=== PATIENT | female | born 1995 | race Two or more races ===

== ENCOUNTER 2020-12-20 19:52 | Emergency (ER) | payer SELFPAY ==
--- NOTE | 2020-12-20 20:43 | EDM.PDOC ---
<Alessia Joe - Last Filed: 12/20/20 23:21> ED HPI GENERAL MEDICAL PROBLEM - General Chief Complaint: Abdominal Pain Stated Complaint: SEVER HEARTBURN Time Seen by Provider: 12/20/20 20:43 Source of Information: Reports: Patient, RN Notes Reviewed History Limitations: Reports: No Limitations - History of Present Illness INITIAL COMMENTS - FREE TEXT/NARRATIVE: Elif presents today with complaints of epigastric and upper abdominal pain for the past several weeks. She states she has been taking ibuprofen 600mg by mouth several times a day for the pain usually starting when she gets up at 0630. She states she tried a friends prescription stomach medication today x 2 doses without any improvement. Elif reports nausea off and on, emesis x 3 at 1300 today, no donovan blood no coffee ground. She has not tried any other OTC, tums, rolaids or interventions. Her priamry is in [facility]. She denies fever, chills, diarrhea, constipation, injury, trauma or other concerns. She reports last alcohol use 6 months ago or longer. She denies use of tobacco, chewing tobacco, or illicit drugs. She states she has been cutting down on spicy or acidic foods for many weeks due to indigestion. Epigastric Pain Score (Numeric/FACES): 6 - Related Data Allergies Allergy/AdvReac Type Severity Reaction Status Date / Time No Known Allergies Allergy Verified 12/20/20 20:27 Home Meds: Home Meds NK [No Known Home Meds] 12/20/20 [History] Past Medical History Cardiovascular History: Reports: None Respiratory History: Reports: None Gastrointestinal History: Reports: GERD Genitourinary History: Reports: None SAND CUTTER History: Reports: None Musculoskeletal History: Reports: None Neurological History: Reports: Seizure Endocrine/Metabolic History: Reports: Obesity/BMI 30+ Hematologic History: Reports: None Immunologic History: Reports: None Oncologic (Cancer) History: Reports: None Dermatologic History: Reports: None - Infectious Disease History Infectious Disease History: Reports: None - Past Surgical History HEENT Surgical History: Reports: Tonsillectomy Female Surgical History: Reports: None Musculoskeletal Surgical History: Reports: None Social & Family History - Tobacco Use Tobacco Use Status *Q: Never Tobacco User - Caffeine Use Caffeine Use: Reports: Soda - Recreational Drug Use Recreational Drug Use: No ED ROS GENERAL - Review of Systems Review Of Systems: See Below Constitutional: Reports: No Symptoms HEENT: Reports: No Symptoms Respiratory: Reports: No Symptoms Cardiovascular: Reports: No Symptoms Endocrine: Reports: No Symptoms GI/Abdominal: Reports: Abdominal Pain (off and on for several weeks. ), Nausea, Vomiting. Denies: Anorexia, Black Stool, Bloody Stool, Constipation, Diarrhea, Decreased Appetite, Difficulty Swallowing, Distension, Hematemesis, Hematochezia, Melena, Mucous in Stool, Stool Incontinence : Reports: No Symptoms Musculoskeletal: Reports: No Symptoms Skin: Reports: No Symptoms Neurological: Reports: No Symptoms Psychiatric: Reports: No Symptoms Hematologic/Lymphatic: Reports: No Symptoms Immunologic: Reports: No Symptoms ED EXAM, GI/ABD - Physical Exam Exam: See Below Exam Limited By: No Limitations General Appearance: Alert, WD/WN, No Apparent Distress Eyes: Bilateral: Normal Appearance Ears: Normal External Exam, Normal Canal, Hearing Grossly Normal, Normal TMs Nose: Normal Inspection, Normal Mucosa, No Blood Throat/Mouth: Normal Inspection, Normal Lips, Normal Teeth, Normal Gums, Normal Oropharynx, Normal Voice, No Airway Compromise Head: Atraumatic, Normocephalic Neck: Normal Inspection, Supple, Non-Tender, Full Range of Motion. No: Lymphadenopathy (R), Lymphadenopathy (L) Respiratory/Chest: No Respiratory Distress, Lungs Clear, Normal Breath Sounds, No Accessory Muscle Use, Chest Non-Tender. No: Decreased Breath Sounds, Crackles, Rales, Rhonchi, Wheezing, Stridor, Accessory Muscle Use, Retractions, Splinting Cardiovascular: Normal Peripheral Pulses, Regular Rate, Rhythm, No Edema, No Gallop, No Murmur, No Rub GI/Abdominal Exam: Normal Bowel Sounds, Soft, No Organomegaly, No Distention, No Abnormal Bruit, No Mass, Tender (to epigastric and RUQ with palpation with pain radiating to LUQ. ). No: Guarding, Rigid, Rebound, Hernia Back Exam: Normal Inspection, Full Range of Motion. No: CVA Tenderness (R), CVA Tenderness (L) Extremities: Normal Inspection, Normal Range of Motion, Non-Tender, No Pedal Edema, Normal Capillary Refill Neurological: Alert, Oriented, CN II-XII Intact, Normal Cognition, Normal Gait, Normal Reflexes, No Motor/Sensory Deficits Psychiatric: Normal Affect, Normal Mood Skin Exam: Warm, Dry, Intact, Normal Color, No Rash Lymphatic: No Adenopathy Course - Orders/Labs/Meds Labs: Patient lab work reviewed, noted hyperbilirubinemia, hyperlipasemia, hyperamylasemia, with elevated LFTs in setting of nausea, vomiting and abdominal pain. Elif notified of abnormal lab work and advised of best plan of care. She is in agreement with plan. We will obtain a CT scan of abdomen and pelvis with IV contrast, administer pain medication and antiemetic. Discussion on potential need for transfer in case she needs procedure not available here - ERCP, she states transfer to [place] or [facility] is appropriate to her. - Re-Assessments/Exams Free Text/Narrative Re-Assessment/Exam: 12/20/20 23:21 Significant abdominal pain with transfer to wheelchair for CT scan, additional dilaudid ordered. Departure - Departure Disposition: DC/Tfer to [facility] Clinical Impression: Acute pancreatitis due to calculus of common bile duct - Discharge Information Referrals: PCP,None [Primary Care Provider] - Forms: ED Department Discharge <Frantz Moe - Last Filed: 12/21/20 01:02> Course - Vital Signs Last Recorded V/S: Last Vital Signs Temp 36.2 C 12/20/20 20:25 Pulse 90 12/20/20 23:30 Resp 17 12/20/20 23:30 BP 113/67 12/20/20 23:30 Pulse Ox 95 12/20/20 23:30 - Orders/Labs/Meds Orders: Active Orders 24 hr Category Date Time Status Sodium Chloride 0.9% [Normal Saline] 1,000 ml Med 12/20/20 22:30 Active IV ASDIRECTED Sodium Chloride 0.9% [Normal Saline] 85 ml Med 12/20/20 23:00 Active IV ASDIRECTED Sodium Chloride 0.9% [Saline Flush] Med 12/20/20 22:21 Active 10 ml FLUSH ASDIRECTED PRN Saline Lock Insert [OM.PC] Routine Oth 12/20/20 22:21 Ordered Medication Orders Sodium Chloride (Normal Saline) 1,000 mls @ 500 mls/hr IV ASDIRECTED NIK Last Admin: 12/20/20 22:53 Dose: 500 mls/hr Documented by: PREILOR Sodium Chloride (Normal Saline) 85 mls @ 3 mls/sec IV ASDIRECTED NIK Last Admin: 12/20/20 23:15 Dose: 3 mls/sec Documented by: ALE Sodium Chloride (Sodium Chloride 0.9% 10 Ml Syringe) 10 ml FLUSH ASDIRECTED PRN PRN Reason: Keep Vein Open Last Admin: 12/20/20 22:57 Dose: 10 ml Documented by: PREILOR Labs: Laboratory Tests 12/20/20 12/20/20 12/20/20 Range/Units 21:13 21:13 23:43 WBC 7.8 (4.5-11.0) K/uL RBC 4.71 (3.30-5.50) M/uL Hgb 13.1 (12.0-15.0) g/dL Hct 39.0 (36.0-48.0) % MCV 83 (80-98) fL MCH 28 (27-31) pg MCHC 34 (32-36) % Plt Count 265 (150-400) K/uL Neut % (Auto) 60.7 (36-66) % Lymph % (Auto) 30.0 (24-44) % [place] % (Auto) 6.9 H (2-6) % Eos % (Auto) 1.8 L (2-4) % Baso % (Auto) 0.6 (0-1) % Sodium 137 L (140-148) mmol/L Potassium 3.6 (3.6-5.2) mmol/L Chloride 102 (100-108) mmol/L Carbon Dioxide 26 (21-32) mmol/L Anion Gap 12.6 (5.0-14.0) mmol/L BUN 6 L (7-18) mg/dL Creatinine 0.6 (0.6-1.0) mg/dL Est Cr Clr Drug Dosing 122.69 mL/min Estimated GFR (MDRD) > 60 (>60) Glucose 99 (74-106) mg/dL Calcium 8.9 (8.5-10.1) mg/dL Total Bilirubin 3.7 H (0.2-1.0) mg/dL AST 535 H (15-37) U/L ALT 894 H (12-78) U/L Alkaline Phosphatase 132 H (46-116) U/L Total Protein 6.9 (6.4-8.2) g/dL Albumin 3.6 (3.4-5.0) g/dL Globulin 3.3 (2.3-3.5) g/dL Albumin/Globulin Ratio 1.1 L (1.2-2.2) Amylase 852 H (25-115) U/L Lipase 47298 H (73-393) U/L Urine Color Yellow (YELLOW) Urine Appearance Clear (CLEAR) Urine pH 6.0 (5.0-8.0) Ur Specific Martha 1.015 (1.008-1.030) Urine Protein Negative (NEGATIVE) mg/dL Urine Glucose (UA) Negative (NEGATIVE) mg/dL Urine Ketones Negative (NEGATIVE) mg/dL Urine Occult Blood Negative (NEGATIVE) Urine Nitrite Negative (NEGATIVE) Urine Bilirubin Small H (NEGATIVE) Urine Urobilinogen 0.2 (0.2-1.0) EU/dL Ur Leukocyte Esterase Negative (NEGATIVE) Urine RBC 0-5 (0-5) Urine WBC 0-5 (0-5) Ur Epithelial Cells Few Amorphous Sediment Few Urine Bacteria Few Urine Mucus Not seen Urine HCG, Qual SARS CoV-2 RNA Rapid ANTHONY 12/20/20 12/20/20 Range/Units 23:43 23:43 WBC (4.5-11.0) K/uL RBC (3.30-5.50) M/uL Hgb (12.0-15.0) g/dL Hct (36.0-48.0) % MCV (80-98) fL MCH (27-31) pg MCHC (32-36) % Plt Count (150-400) K/uL Neut % (Auto) (36-66) % Lymph % (Auto) (24-44) % [place] % (Auto) (2-6) % Eos % (Auto) (2-4) % Baso % (Auto) (0-1) % Sodium (140-148) mmol/L Potassium (3.6-5.2) mmol/L Chloride (100-108) mmol/L Carbon Dioxide (21-32) mmol/L Anion Gap (5.0-14.0) mmol/L BUN (7-18) mg/dL Creatinine (0.6-1.0) mg/dL Est Cr Clr Drug Dosing mL/min Estimated GFR (MDRD) (>60) Glucose (74-106) mg/dL Calcium (8.5-10.1) mg/dL Total Bilirubin (0.2-1.0) mg/dL AST (15-37) U/L ALT (12-78) U/L Alkaline Phosphatase (46-116) U/L Total Protein (6.4-8.2) g/dL Albumin (3.4-5.0) g/dL Globulin (2.3-3.5) g/dL Albumin/Globulin Ratio (1.2-2.2) Amylase (25-115) U/L Lipase (73-393) U/L Urine Color (YELLOW) Urine Appearance (CLEAR) Urine pH (5.0-8.0) Ur Specific Martha (1.008-1.030) Urine Protein (NEGATIVE) mg/dL Urine Glucose (UA) (NEGATIVE) mg/dL Urine Ketones (NEGATIVE) mg/dL Urine Occult Blood (NEGATIVE) Urine Nitrite (NEGATIVE) Urine Bilirubin (NEGATIVE) Urine Urobilinogen (0.2-1.0) EU/dL Ur Leukocyte Esterase (NEGATIVE) Urine RBC (0-5) Urine WBC (0-5) Ur Epithelial Cells Amorphous Sediment Urine Bacteria Urine Mucus Urine HCG, Qual Negative SARS CoV-2 RNA Rapid ANTHONY Negative Meds: Medications Generic Name Dose Route Start Last Admin Trade Name Freq PRN Reason Stop Dose Admin Sodium Chloride 1,000 mls @ 500 mls/hr 12/20/20 22:30 12/20/20 22:53 Normal Saline IV 500 mls/hr ASDIRECTED NIK Administration Sodium Chloride 85 mls @ 3 mls/sec 12/20/20 23:00 12/20/20 23:15 Normal Saline IV 3 mls/sec ASDIRECTED NIK Administration Sodium Chloride 10 ml 12/20/20 22:21 12/20/20 22:57 Sodium Chloride 0.9% 10 Ml Syringe FLUSH 10 ml ASDIRECTED PRN Administration Keep Vein Open Discontinued Medications Generic Name Dose Route Start Last Admin Trade Name Freq PRN Reason Stop Dose Admin Al Hydroxide/Mg Hydroxide 15 0 ml 12/20/20 21:02 12/20/20 21:31 ml/ Lidocaine HCl 15 ml PO 12/20/20 21:03 30 ml ONETIME ONE Administration Famotidine 20 mg 12/20/20 21:02 12/20/20 21:30 Famotidine 20 Mg Tab PO 12/20/20 21:03 20 mg ONETIME ONE Administration Hydromorphone HCl 0.5 mg 12/20/20 22:21 12/20/20 22:55 Hydromorphone 0.5 Mg/0.5 Ml Syringe IVPUSH 12/20/20 22:22 0.5 mg ONETIME ONE Administration Hydromorphone HCl 0.5 mg 12/20/20 23:21 12/20/20 23:27 Hydromorphone 0.5 Mg/0.5 Ml Syringe IVPUSH 12/20/20 23:22 0.5 mg ONETIME ONE Administration Iopamidol 150 ml 12/20/20 23:00 12/20/20 23:15 Iopamidol 612 Mg/Ml 150 Ml Bottle IV 150 ml . DIRECTED NIK Administration Ondansetron HCl 4 mg 12/20/20 22:21 12/20/20 22:54 Ondansetron 4 Mg/2 Ml Sdv IVPUSH 12/20/20 22:22 4 mg ONETIME ONE Administration Sodium Chloride 10 ml 12/20/20 22:51 12/20/20 23:41 Sodium Chloride 0.9% 10 Ml Syringe FLUSH 12/20/20 22:52 10 ml ONETIME ONE Administration - Radiology Interpretation Free Text/Narrative:: I reviewed the CT of the abdomen and pelvis as well as the report as follows. FINDINGS: Lower chest: No focal consolidation. Liver: Subcentimeter hypervascular lesions in segment 4A (series 2, image 38) and segment 6/7 (series 2, image 58), likely reflective of perfusion anomalies. Gallbladder and bile ducts: Layering hyperdense gallbladder sludge. There is mild dilation of the common bile duct as well as the intrahepatic biliary ducts, with suggestion of mild hyperdense sludge within the common bile duct. Pancreas: Diffuse peripancreatic inflammatory stranding, most prominent adjacent to the neck and body. No peripancreatic fluid collection identified. Pancreatic parenchyma enhances homogeneously, without evidence of necrosis. Spleen: Unremarkable. Adrenal glands: Unremarkable. Kidneys: Kidneys enhance symmetrically, without hydronephrosis. Too small to characterize hypodense right renal lesions. Retroperitoneum: No lymphadenopathy. Bowel and mesentery: Bowel is nonobstructed. Normal appendix. Bladder: Unremarkable for degree of distension. Reproductive organs: Intrauterine contraceptive device is noted. Pelvic lymph nodes: No lymphadenopathy. Vessels: Unremarkable. Abdominal wall: No acute abdominal wall abnormality. Bones: No suspicious/aggressive focal osseous lesion. IMPRESSION: 1. Diffuse peripancreatic inflammatory stranding, consistent with acute pancreatitis. No peripancreatic fluid collection or evidence of necrosis identified at this time. 2. Layering hyperdense gallbladder sludge. Mild dilation of the common bile duct, with subtle hyperdense sludge within the common bile duct itself. Findings suggest gallstones as etiology of pancreatitis. 3. Subcentimeter hypervascular liver lesions, likely reflective of perfusion anomalies/vascular shunts. Please note that all CT scans at this facility use dose modulation, iterative reconstruction, and/or weight-based dosing when appropriate to reduce radiation dose to as low as reasonably achievable. Dictated by Devante Ferrell MD @ 12/21/2020 12:35:48 AM - Re-Assessments/Exams Free Text/Narrative Re-Assessment/Exam: 12/21/20 23:00 I assumed care of the patient from [facility] at 2300 hrs. We are awaiting the results of the CT of the abdomen and pelvis was done for evaluation of acute pancreatitis. 12/21/2020 00:40 I reviewed the images of the CT of the abdomen pelvis as well as the report. There appears to be acute pancreatitis with hyperdense layering of sludge in the gallbladder and dilation of the common bile duct. There appears to be an abrupt change in diameter just below the pancreatic duct which I suspect is due to a nonvisualized bile stone. The patient will need an ERCP so we will arrange for transfer the patient to [facility]. I discussed the case with Dr. Espinoza, hospitalist at [facility] who accepts the patient in transfer for admission and further care. Patient will go by ALS ambulance in case she needs additional pain medication in route. This was discussed with the patient who was also in agreement with this plan. Departure - Departure Time of Disposition: 01:02 Sepsis Event Note (ED) - Focused Exam Vital Signs: Vital Signs Temp Pulse Resp BP Pulse Ox 12/20/20 23:30 90 17 113/67 95 12/20/20 23:00 88 16 139/90 98 12/20/20 20:25 36.2 C 88 16 130/78 97
[2020-12-20] MEDS ORDERED: Alum Hydrox/Mag Hydrox/Simeth 15 ML, Lidocaine 2% 15 ML PO ONE ×2 (21:02)
[2020-12-20] MEDS ORDERED: Famotidine 20 MG Tab PO ONE (21:02)
[2020-12-20] MEDS ORDERED: HYDROmorphone 0.5 MG/0.5 ML Syringe IVPUSH ONE ×2 (22:21→23:21)
[2020-12-20] MEDS ORDERED: Sodium Chloride 0.9% 10 ML Syringe FLUSH PRN (22:21)
[2020-12-20] MEDS ORDERED: Ondansetron 4 MG/2 ML SDV IVPUSH ONE (22:21)
[2020-12-20] MEDS ORDERED: Sodium Chloride 0.9% 1,000 ML IV SCH (22:30)
[2020-12-20] MEDS ORDERED: Sodium Chloride 0.9% 10 ML Syringe FLUSH ONE (22:51)
[2020-12-20] MEDS ORDERED: Iopamidol 612 MG/ML 150 ML Bottle IV SCH (23:00)
--- NOTE | 2020-12-21 00:37 | CRLCT ---
For Patients: As a result of the Century Cures Act, medical imaging exams and procedure reports are released immediately into your electronic medical record. You may view this report before your referring provider. If you have questions, please contact your health care provider. INDICATION: Abdominal pain, elevated amylase/lipase. TECHNIQUE: CT abdomen and pelvis acquired with 150 mL Isovue-300 contrast. COMPARISON: None FINDINGS: Lower chest: No focal consolidation. Liver: Subcentimeter hypervascular lesions in segment 4A (series 2, image 38) and segment 6/7 (series 2, image 58), likely reflective of perfusion anomalies. Gallbladder and bile ducts: Layering hyperdense gallbladder sludge. There is mild dilation of the common bile duct as well as the intrahepatic biliary ducts, with suggestion of mild hyperdense sludge within the common bile duct. Pancreas: Diffuse peripancreatic inflammatory stranding, most prominent adjacent to the neck and body. No peripancreatic fluid collection identified. Pancreatic parenchyma enhances homogeneously, without evidence of necrosis. Spleen: Unremarkable. Adrenal glands: Unremarkable. Kidneys: Kidneys enhance symmetrically, without hydronephrosis. Too small to characterize hypodense right renal lesions. Retroperitoneum: No lymphadenopathy. Bowel and mesentery: Bowel is nonobstructed. Normal appendix. Bladder: Unremarkable for degree of distension. Reproductive organs: Intrauterine contraceptive device is noted. Pelvic lymph nodes: No lymphadenopathy. Vessels: Unremarkable. Abdominal wall: No acute abdominal wall abnormality. Bones: No suspicious/aggressive focal osseous lesion. IMPRESSION: 1. Diffuse peripancreatic inflammatory stranding, consistent with acute pancreatitis. No peripancreatic fluid collection or evidence of necrosis identified at this time. 2. Layering hyperdense gallbladder sludge. Mild dilation of the common bile duct, with subtle hyperdense sludge within the common bile duct itself. Findings suggest gallstones as etiology of pancreatitis. 3. Subcentimeter hypervascular liver lesions, likely reflective of perfusion anomalies/vascular shunts. Please note that all CT scans at this facility use dose modulation, iterative reconstruction, and/or weight-based dosing when appropriate to reduce radiation dose to as low as reasonably achievable. Dictated by Devante Ferrell MD @ 12/21/2020 12:35:48 AM (Electronically Signed)
[2020-12-21] MEDS ORDERED: HYDROmorphone 0.5 MG/0.5 ML Syringe IVPUSH ONE (01:18)
== END 2020-12-21 02:18 ==
LOC: JP.ED 19:52
DX: K85.90 Acute pancreatitis without necrosis or infection, unspecified (principal); K80.50 Calculus of bile duct without cholangitis or cholecystitis without obstruction; E66.9 Obesity, unspecified; Z68.37 Body mass index [BMI] 37.0-37.9, adult; Z20.822 Contact with and (suspected) exposure to COVID-19
CPT/HCPCS: 36415; 74177; 80053; 81001; 81025; 82150; 83690; 85025; 87635; 96374; 96375; 96376; 99285; A9270; J1170; J2405; J7030; Q9967; U0002

== ENCOUNTER 2022-12-31 09:48 | Emergency (ER) | payer MEDICAID ==
[2022-12-31 10:30] LABS: BILIRUBIN,URINE NEGATIVE (NEGATIVE); COLOR,URINE YELLOW (YELLOW); GLUCOSE,URINE NEGATIVE (NEGATIVE); KETONES,URINE NEGATIVE (NEGATIVE); LEUKOCYTE ESTERASE,URINE NEGATIVE (NEGATIVE); NITRITE,URINE NEGATIVE (NEGATIVE); OCCULT BLOOD,URINE LARGE (NEGATIVE); PH,URINE 5.5 (5.0-8.0); PROTEIN,URINE NEGATIVE (NEGATIVE); UROBILINOGEN,URINE 0.2 EU/dL (0.2-1.0)
[2022-12-31 10:49] LABS: AMORPHOUS SEDIMENT,URINE NOT SEEN; BACTERIA,URINE FEW; EPITHELIAL CELLS,URINE FEW; MUCUS,URINE NOT SEEN; RBC,URINE 50-75 (0-5); WBC,URINE 0-5 (0-5)
[2022-12-31 10:50] LABS: APPEARANCE,URINE SLIGHTLY CLOUDY (CLEAR)
== END 2022-12-31 11:17 | disposition home or self-care (01) ==
LOC: JP.ED 09:48
DX: N94.6 Dysmenorrhea, unspecified (principal); E66.9 Obesity, unspecified; Z86.16 Personal history of COVID-19
CPT/HCPCS: 81001; 99283